=== PATIENT | male | born 1970 | race Caucasian/White ===

== ENCOUNTER 2022-07-27 08:43 | Emergency (ER) | payer OTHER, SELFPAY ==
[2022-07-27] VITALS (12 sets, daily range): BP systolic 51–166; BP diastolic 33–94; PULSE 37–84; RESP 14–47; TEMP 34.7–35.9; O2SAT 77–98; BMI 25.2
--- NOTE | 2022-07-27 08:55 | EKG12_ITS ---
Test Reason : UNRESPONSIVE Blood Pressure : / mmHG Vent. Rate : 046 BPM Atrial Rate : 000 BPM P-R Int : 000 ms QRS Dur : 128 ms QT Int : 510 ms P-R-T Axes : 000 070 082 degrees QTc Int : 446 ms Junctional rhythm Premature ventricular complexes Confirmed by DAHIANA AYALA, JESSICA ([id number]), book or script editor STERLING DOAN ([id number]) on 07/28/2022 9:25:33 AM Referred By: BB Confirmed By:JESSICA TALBOT MD
--- NOTE | 2022-07-27 09:00 | EKG12_ITS ---
Test Reason : UNRESPONSIVE Blood Pressure : / mmHG Vent. Rate : 045 BPM Atrial Rate : 000 BPM P-R Int : 000 ms QRS Dur : 134 ms QT Int : 584 ms P-R-T Axes : 000 -50 -74 degrees QTc Int : 505 ms Poor data quality, interpretation may be adversely affected Wide QRS rhythm with Premature ventricular complexes or Fusion complexes Left axis deviation Right bundle branch block Inferior infarct , age undetermined Abnormal ECG Confirmed by DAHIANA AYALA, JESSICA ([id number]), editor newspaper STERLING DOAN ([id number]) on 07/28/2022 9:25:56 AM Referred By: BB Confirmed By:JESSICA TALBOT MD
[2022-07-27] MEDS: 0.9% Normal Saline 1,000 ML 1000 ML IV ×2 (09:02→10:14)
[2022-07-27] MEDS: DOPamine IV 800 MG/250 ML IV.SOLN. 8.1 MG CONT INF (09:03)
--- NOTE | 2022-07-27 09:23 | CT_ITS ---
STUDY: CT BRAIN WITHOUT CONTRAST REASON FOR EXAM: Male, 51 years old. Altered LOC RADIATION DOSAGE (If Supplied By Facility): CTDIvol = ( 44.99 ) mGy, DLP = ( 829.85 ) mGycm TECHNIQUE: Transaxial CT imaging of the brain was performed without administration of intravenous contrast material. Individualized dose optimization techniques were used for this CT. COMPARISON: No relevant priors. FINDINGS: Normal soft tissue structures. Normal calvarium. There is loss of the normal cooley-white matter differentiation of both cerebral hemispheres. There is visualization of the arteries arising from the [place] suspicious of the poor flow. Diffuse ischemic changes should be ruled out. Normal basal ganglia and thalami. Normal brainstem. Normal cerebellum. There is no intracranial hemorrhage. There are no findings of an acute ischemic infarction. Opacification of the left maxillary sinus as well as mucosal thickening of the right maxillary sinus and anterior sphenoid sinus. CT/Brain/Head without Contrast IMPRESSION: Findings suggestive of cerebral ischemia as described. Electronically Signed: Franck Tyson MD at 10:16 EDT ,
--- NOTE | 2022-07-27 09:23 | EX.ED.CRITCA ---
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 Maximum estimated downtime prior to calling EMS was 15 minutes. EMS reports there was no bystander CPR being performed. He was asystole on their initial evaluation, ACLS was performed. A total of 6 rounds of epinephrine were given prior to arrival here, he was asystolic for the first 3 or 4, then he was in V. tach or V-fib, they shocked him multiple times while continuing CPR performed by Sedrick device. Prehospital, amiodarone 300 mg was given in addition to an additional 150. They placed a Bari airway. No other medications were given except for some IV fluids. PFSH PFSH Medical History unable to obtain unable to obtain Home Medications NK 07/27/22 [History Last Taken Unknown] Allergy/AdvReac Type Severity Reaction Status Date / Time No Known Allergies Allergy Verified 07/27/22 10:33 Surgical History unable to obtain unable to obtain Social History Smoking Status: Unknown if ever smoked ROS ROS ED Review of Systems ROS Unobtainable: due to mental status EXAM Physical Exam Const Vital Signs: 07/27/22 08:44 07/27/22 09:05 07/27/22 09:11 Temperature Temperature [4] 96.7 F L Temperature Source Pulse Rate 53 L Pulse Rate [1] 80 Pulse Rate [3] 84 Pulse Rate [4] 37 L Respiratory Rate 17 Respiratory Rate [1] 26 H Respiratory Rate [3] 47 H Respiratory Rate [4] 14 Respiratory Effort Respiratory Pattern Blood Pressure 51/33 L Blood Pressure [3] 124/46 H Blood Pressure [4] 59/44 L Blood Pressure Mean 39 Blood Pressure Source Pulse Ox 93 Oxygen Delivery Method Ambu-Bag Ambu-Bag Mechanical Ventilator Fraction of Inspired Oxygen (FIO2) 07/27/22 09:21 07/27/22 09:23 07/27/22 09:31 Temperature 96.7 F L Temperature [4] Temperature Source Temporal Pulse Rate 78 Pulse Rate [1] Pulse Rate [3] Pulse Rate [4] Respiratory Rate 20 H Respiratory Rate [1] Respiratory Rate [3] Respiratory Rate [4] Respiratory Effort Mechanically Ventilated Respiratory Pattern Blood Pressure 151/94 H Blood Pressure [3] Blood Pressure [4] Blood Pressure Mean 113 Blood Pressure Source Pulse Ox 97 Oxygen Delivery Method Mechanical Ventilator Fraction of Inspired Oxygen (FIO2) 07/27/22 09:45 07/27/22 10:00 07/27/22 10:15 Temperature 94.6 F L 94.6 F L 94.4 F L Temperature [4] Temperature Source Core Core Core Pulse Rate 80 74 71 Pulse Rate [1] Pulse Rate [3] Pulse Rate [4] Respiratory Rate 20 H 22 H 27 H Respiratory Rate [1] Respiratory Rate [3] Respiratory Rate [4] Respiratory Effort Respiratory Pattern Blood Pressure 166/87 H 139/92 H 126/83 H Blood Pressure [3] Blood Pressure [4] Blood Pressure Mean 113 107 97 Blood Pressure Source Monitor Pulse Ox 97 97 98 Oxygen Delivery Method Mechanical Ventilator Mechanical Ventilator Mechanical Ventilator Fraction of Inspired Oxygen (FIO2) 45 07/27/22 10:31 07/27/22 10:32 07/27/22 09:05 Temperature 94.8 F L Temperature [4] Temperature Source Core Pulse Rate 73 72 59 L Pulse Rate [1] Pulse Rate [3] Pulse Rate [4] Respiratory Rate 32 H 32 H 24 H Respiratory Rate [1] Respiratory Rate [3] Respiratory Rate [4] Respiratory Effort Respiratory Pattern Tachypnea Blood Pressure 118/84 H 118/84 H Blood Pressure [3] Blood Pressure [4] Blood Pressure Mean 95 95 Blood Pressure Source Monitor Pulse Ox 97 97 97 Oxygen Delivery Method Mechanical Ventilator Mechanical Ventilator Fraction of Inspired Oxygen (FIO2) 100 Positive well nourished and well developed General Appearance ED: well developed and pallor Orientation / Consciousness: obtunded Exam Limitations: altered mental status HEENT normocephalic, atraumatic and cyanosis of lips/distal nose Eyes Pupil: fixed Positive for bilateral (4-5mm) and not reactive Positive for bilateral Neck supple Resp Resp Narrative: No spontaneous respirations. Breath sounds are bilaterally with bagging. Cardio Cardio Narrative: No heart sounds. Central pulses palpable with CPR only. GI non-distended Palpation: soft Neuro Neuro Narrative: Obtunded and flaccid x4. GCS 3 T. Skin General Skin Exam: pallor Lesions: no lesions Rashes: no rashes MDM MDM MDM Narrative Medical decision making narrative: We continued ACLS protocol however, with the Sedrick device performing CPR we could not definitively feel pulses. Therefore I stopped the device and had a solid waste landfill technician take over CPR. We had good pulses with this, and upon checking for rhythm initially the patient was in what appeared to be ventricular tachycardia so we shocked him at 200 J biphasic, and continued CPR. Before 2 minutes was up, the patient's end-tidal CO2 went from the low 20s to the low 30s so we stopped and checked for a pulse and the patient had 1. Additionally an organized rhythm, what appeared to be sinus bradycardia in the low 40s, which then improved to the 50s. Blood pressure measurable, 50s/30s, IV fluids bolus, ordered dopamine stat from the pharmacy, and I placed a central line. It was started in a peripheral line, this raises blood pressure, and we moved it to the central line once chest x-ray verified placement of that and ETT. On my interpretation, it does show good ETT and central line placement with no pneumothorax seen. Discussed with cardiology, given the EKG shows right bundle branch block, sinus bradycardia, some ST depressions but no STEMI. They advised ICU medical admission and they will consult. Intensive care does advise that we do not have hypothermia protocol at this hospital and the patient may need a higher level of care based on that. I agree. I am putting the patient on ice packs, there is no family at this time to contact, initiated contact with [facility]. Discussed at length with Dr. Davidson who accepted the patient. I did send the patient for a CT of the head, I reviewed the images and the report which I agree with, suggesting cerebral edema/ischemia. Patient is doing some breathing on his own right now, we will continue to try to induce some hypothermia. He was having some frothy sputum in the ETT, we changed the patient over to A/C VC+ mode, which seem to help this. Patient's vital signs maintaining off of dopamine, I am ordering mannitol since the patient is overbreathing the vent but not showing any other signs of life and has CT with severe cerebral edema. Critical care at [facility] also advising amiodarone drip which I think is reasonable. History & Record Review Discussion w/independent historian: EMS personnel and Unable to obtain Additional record(s) reviewed:: No prior records Radiography Diagnostic Testing: Clinical Impression(s) from Imaging Studies Brain CT 07/27/22 09:23 IMPRESSION: Findings suggestive of cerebral ischemia as described. Electronically Signed: Franck Tyson MD at 10:16 EDT , Chest X-Ray 07/27/22 09:30 IMPRESSION: Support tubes are in good position. Mild degree of vascular congestion. Electronically Signed: Franck Tyson MD at 10:11 EDT , KUB X-Ray 07/27/22 09:43 IMPRESSION: Tip of the orogastric tube is in the fundal portion of the stomach. Electronically Signed: Franck Tyson MD at 10:10 EDT , Rhythm Strip Rhythm Strip: Sinus Rhythm Rate: 45 Ectopy: PVC(s) EKG Initial EKG: Attestation: I personally reviewed and interpreted this EKG as follows: Interpretation: No Acute Injury Pattern, Sinus Bradycardia, RBBB and S-T Depression Prior: No Prior Follow-up EKG: Attestation: I personally reviewed and interpreted this EKG as follows: Interpretation: No Acute Injury Pattern, Sinus Bradycardia, RBBB and S-T Depression Prior: Unchanged Management Discussion w/another healthcare provider: Supervisor Rework (cardiology [place], [facility] [place], [facility] MELANIE Costa) and Radiologist Procedures Intubations Intubation Method: orotracheal (7.5F ETT, performed in order to switch out the Bari airway and hooked patient up to ventilator with cuffed ETT. Secured 22 cm at the lip.) Intubation Verification: Positive color change Intubation Complications: no complications (There was some clear nonbloody frothy sputum suctioned from the patient's glottis prior to inserting the ETT) Other Procedures Procedure(s): ACLS supervision Central Line placement: Due to cardiogenic shock, emergent central line was placed right venous subclavian, second attempt with finder needle bright red but nonpulsatile blood, placed via modified Seldinger technique, 16 cm triple-lumen catheter all 3 ports trae back nonpulsatile red blood and flushed easily. Sutured in place, chlorhexidine disc placed at the site, placement verified by chest x-ray no pneumothorax on my interpretation 1 view. No complications except for an unsuccessful attempt initially. Critical Care Time Critical Care Time: Yes Critical care time (excluding procedures): 30-74 minutes (80 min, not including procedure time), Including time spent:, Discussing w/Consultants, Arranging Admission or Transfer and Performing Direct Patient Care at Bedside Discharge Plan Triage Chief Complaint: CPR ED Provider: Hema Smith Dx/Rx/DC Orders Clinical Impression: Cardiopulmonary arrest with successful resuscitation, Cardiogenic shock Prescriptions: No Action NK Primary Care Provider: Care Physician,No Primary Referrals: Care Physician,No Primary [Primary Care Provider] - Disposition Disposition: Acute Care Hospital Discharge Location: [facility]
--- NOTE | 2022-07-27 09:30 | RAD_ITS ---
STUDY: X-RAY CHEST REASON FOR EXAM: Male, 51 years old. ETT TECHNIQUE: Single AP portable view of the chest. COMPARISON: None. FINDINGS: An endotracheal tube is in situ. The tip is at 6.1 cm proximal to the shanthi. An orogastric tube is seen with the tip at the gastroesophageal junction. A right-sided subclavian catheter is seen with the tip at the junction of the superior vena cava and right atrium. EKG electrodes are seen. Hyperinflation. Mild vascular congestion. There is no demonstrated pleural abnormality. Normal size heart. Normal mediastinum and donal. Normal visualized pulmonary arteries. Normal visualized aortic arch and descending thoracic aorta. Normal visualized thoracic spine. Normal visualized ribs, clavicles, and shoulders. There is no demonstrated abnormality of the visualized soft tissue structures of the upper abdomen. RAD/Chest 1 View (Portable) IMPRESSION: Support tubes are in good position. Mild degree of vascular congestion. Electronically Signed: Franck Tyson MD at 10:11 EDT ,
--- NOTE | 2022-07-27 09:43 | RAD_ITS ---
STUDY: X-RAY - ABDOMEN/PELVIS REASON FOR EXAM: Male, 51 years old. OG #2 TECHNIQUE: Single AP view of the abdomen / pelvis. COMPARISON: Comparison is made with prior study done earlier in the day. FINDINGS: The tip of the orogastric tube is in the fundal portion of the stomach. RAD/Abdomen Single View (Portable) IMPRESSION: Tip of the orogastric tube is in the fundal portion of the stomach. Electronically Signed: Franck Tyson MD at 10:10 EDT ,
--- NOTE | 2022-07-27 10:41 | ED.RN ---
PER [facility] CALL SENT, ICU DR. TONYA VOSS. PROVIDER AWARE.
--- NOTE | 2022-07-27 10:44 | ED.RN ---
ATTEMPTED TO CALL REPORT. ON HOLD FOR 10 MIN.
[2022-07-27 10:50] LABS: Base Excess -14 mmol/L (-2 to +2); Bicarbonate 14.8 mmol/L (22-26); Blood Gas Specimen Type ART; FI02 35; Mode AC; O2 Delivery Device Adult Vent; PEEP 5; PO2 102 mmHG (75-100); RR 20; SITE R Brach; SO2 95 % (95-99); Total Carbon Dioxide 16 mmol/L; Vt 450; pCO2 45.1 mmHg (35-45); pH 7.13 (7.35-7.45)
[2022-07-27 10:57] LABS: Hematocrit 50.8 % (40-54); Hemoglobin 15.7 g/dL (13.0-16.5); International Normalized Ratio 1.3; Mean Corp Hgb Conc 30.9 g/dL (32-36); Mean Corpuscular Volume 103.7 fL (80-94); Mean Platelet Vol. 10.5 fl (6.2-12.0); POSITIVE COUNT YES; POSITIVE MORPHOLOGY YES; Partial Thromboplast Time 40.2 Seconds (24.1-36.2); Platelet Count 77 K/mm3 (150-450); Prothrombin Time (Protime)PT. 15.8 SECONDS (11.7-14.9); RBC Distribution Width CV 12.9 % (11.6-14.6); RBC Distribution Width SD 49.7 fl (35.1-43.9); White Blood Count 10.9 K/mm3 (4.4-11.0)
[2022-07-27 10:59] LABS: Magnesium 2.8 mg/dL (1.6-2.6)
--- NOTE | 2022-07-27 10:59 | ED.RN ---
DID NOT RECEIVE MEDICATIONS FROM PHARMACY PRIOR PT LEAVING.
[2022-07-27 11:05] LABS: AST(SGOT) 42 U/L (15-37); Alanine Aminotransfer ALT/SGPT 44 U/L (16-61); Alkaline Phosphatase 67 U/L (45-117); Anion Gap 17 (5-15); BUN 16 mg/dL (7-18); BUN/Creat Ratio 12.6 RATIO (10-20); Calcium,Total 8.1 mg/dL (8.5-10.1); Chloride 105 mmol/L (98-107); Creatinine, Serum 1.27 mg/dL (0.70-1.30); EST Glomerular Filtration Rate 63 mL/min (>60); Est Glom Filt Rate - Afr Amer 76 mL/min (>60); Estimated Creatinine Clearance 76.89 ml/min; Globulin 2.8 g/dL (2.2-4.2); Glucose 317 mg/dL (74-106); Potassium 3.3 mmol/L (3.5-5.1); Protein, Total 5.8 g/dL (6.4-8.2); Sodium Level 138 mmol/L (136-145); Troponin-I HS (w/2H Reflex) 21 pg/mL (3.0-78.0)
[2022-07-27 11:06] LABS: Differential Indicated MANUAL DIFF; Reflex Troponin-HS? (from REC) Y
[2022-07-27 11:44] LABS: Eosinophil 2 % (0-5); Lymphocyte 45 % (19-41); Metamyelocyte 3 % (0-1); Monocyte 4 % (0-10); Myelocyte 4 % (0-0); Neutrophil-Segmented 42 % (47-70); Total Cells Counted 100 (MANUAL DIFF)
[2022-07-27 11:46] LABS: Reactive Lymphocyte 3+
[2022-07-27 11:47] LABS: Absolute Neutrophil Count 4.6 X10^3/uL (2.0-7.7)
--- NOTE | 2022-07-27 15:09 | CPS ---
ER Dr. Smith notified of critical values by CONSULTING [facility]ME
[2022-07-27 23:53] LABS: Platelet Estimate MOD DEC (ADEQ)
[2022-07-28 10:26] LABS: Pathologist Review Reviewed
== END 2022-07-27 11:05 | disposition short-term general hospital (02) ==
PROVIDERS: Emergency Provider Emergency Medicine; Visit Provider Emergency Medicine
DX: I46.9 Cardiac arrest, cause unspecified (principal); R57.0 Cardiogenic shock
CPT/HCPCS: 36556; 31500; 36600; 51702; 70450; 71045; 74018; 80048; 80076; 82803; 83735; 84484; 85025; 85610; 85730; 92950; 93005; 94002; 96360; 99285; A4216; C1751